=== PATIENT | male | born 1985 | race Caucasian/White ===

== ENCOUNTER 2021-10-08 20:54 | Emergency (ER) | payer SELFPAY ==
--- NOTE | 2021-10-08 21:06 | W.ED.GENADLT ---
HPI - General Adult General: Chief complaint: Nausea/Vomiting/Diarrhea Stated complaint: ABD PAIN Time Seen by Provider: 10/08/21 21:06 History of Present Illness: Patient is a 36-year-old male without any significant past medical history presenting to the emergency room with complaints of right-sided flank back and lower abdominal pain. Patient first noticed pain 2 days ago while he was walking. Since then patient has noticed the pain has significantly worsened. Patient reports nausea/vomiting, and yellowish stool. Patient denies any diarrhea, melena hematochezia. He no complaints new penile discharge or trauma or injury. Patient denies any prior abdominal surgeries. Patient has no renal colic. Denies any cough, runny nose sore throat, chest pain, shortness of breath, palpitation, or lightheadedness. Onset:2 days ago Duration:2 days Location:home Severity:moderate Associated symptoms: Reports nausea and vomiting; Deny chest pain, dyspnea, rash or palpitations Review of Systems Const: Denies: fever(s) or chills Eyes: Denies: change in vision ENMT: Denies: mouth pain Card: Denies: chest pain or palpitations Resp: Denies: dyspnea or non-productive cough GI: Reports: abdominal pain (+R flank/RLQ abd pain), nausea and vomiting; Denies: diarrhea : Denies: dysuria Musc: Denies: extremity pain Skin/Breast: Denies: rash or new lesions Neuro: Denies: weakness in extremities Psych: Reports: other (Normal mood) Herminio/Lymph: Denies: easy bruising FOR[facility]LY [facility], [facility] ED PFSH: Medical History No pertinent past medical history Social History Smoking and tobacco status: never smoked Alcohol intake: never Physical Exam Const: COMMON NORMALS: alert HENMT: COMMON NORMALS: atraumatic HEAD & SCALP: atraumatic MOUTH: moist mucous membranes not abnormal Eye: COMMON NORMALS: EOMs intact bilaterally and conjunctivae normal CONJUNCTIVA: Yes conjunctivae normal Neck/C-Spine: COMMON NORMALS: full ROM and supple Resp: COMMON NORMALS: normal respiratory effort and clear to auscultation bilaterally AUSCULTATION: clear to auscultation bilaterally Cardio: COMMON NORMALS: regular rate RATE: regular rate GI: COMMON NORMALS: Soft to palpation PALPATION: Yes Soft to palpation OTHER: + Moderate right flank, right CVA and right lower quadrant tenderness palpation. NO guarding rebound, guarding, rigidity. No CVA tenderness to percussion. Neg Barreto/Neg McBurney's point tenderness, no suprabupic tenderness to palpation. Extremity: COMMON NORMALS: full ROM Neuro: SENSORIUM/ORIENTATION: Yes alert MOTOR EXAM: No Abnormal motor strength present and Other motor observations present (no focal motor deficits) Psych: COMMON NORMALS: speech normal SPEECH: Yes normal speech MOOD & AFFECT: Yes euthymic mood Course Vital Signs: Vital signs: Vital Signs Temperature 98.0 F 10/08/21 21:11 Pulse Rate 65 10/08/21 23:53 Respiratory Rate 18 10/08/21 23:53 Blood Pressure 117/81 10/08/21 23:53 Pulse Oximetry 99 10/08/21 23:53 Oxygen Delivery Me thod 10/08/21 21:17 MDM - General Adult Medical Decision Making 36-year-old male presenting to the emergency room complaints of right-sided abdominal pain for last 2 days with associated nausea and vomiting. Exam, patient has moderate tenderness palpation in the right flank and right lower quadrant and right CVA area. No guarding or rebound tenderness. Patient hemodynamically stable. No acute distress Patient had a white count 12.3. Rest of lab within normal limit. UA negative for UTI. CT abdomen pelvis did not show any focal findings. No suspicion for other acute intra-abdominal pathology including SBO, biliary pathology, appendicitis, diverticulitis, or other emergent condition requiring surgery. Patient has been able to tolerate p.o. and reports pain is improved today observed in the emergency room. Rx tylenol PRN abd pain, maalox/pepcid PRN dyspepsia, and zofran PRN nausea/vomiting Disposition: Discharge. Patient counseled regarding diagnostic impression, treatment plan. Patient given ED strict return precautions to return for continuation, worsening, or development of new symptoms. Instructed to f/u w/ PCP regarding symptoms today. Patient verbalized understanding. Lab Data : 10/08/21 21:08 10/08/21 21:08 Radiology Impressions Abdomen/Pelvis CT 10/08/21 21:06 IMPRESSION: 1. No acute finding identified. Laboratory Results WBC 12.3 10^3/uL (4.0-10.0) H 10/08/21 21:08 RBC 5.48 10^6/uL (4.1-5.3) H 10/08/21 21:08 Hgb 14.3 g/dL (11.7-16.6) 10/08/21 21:08 Hct 43.0 % (42.0-52.0) 10/08/21 21:08 MCV 78.5 fl (80-94) L 10/08/21 21:08 MCH 26.1 pg (28.0-34.0) L 10/08/21 21:08 MCHC 33.3 g/dL (30.0-36.0) 10/08/21 21:08 RDW 14.7 % (12.1-15.1) 10/08/21 21:08 Plt Count 313 10^3/cmm (130-400) 10/08/21 21:08 MPV 10.5 fL (7.4-10.4) H 10/08/21 21:08 Neut % (Auto) 69.2 % 10/08/21 21:08 Lymph % (Auto) 24.3 % 10/08/21 21:08 Real % (Auto) 5.6 % 10/08/21 21:08 Eos % (Auto) 0.3 % 10/08/21 21:08 Baso % (Auto) 0.3 % 10/08/21 21:08 Neut # (Auto) 8.50 10^3/uL (1.8-7.7) H 10/08/21 21:08 Lymph # (Auto) 3.0 10^3/uL (0.8-4.8) 10/08/21 21:08 Real # (Auto) 0.7 10^3/uL (0.2-0.9) 10/08/21 21:08 Eos # (Auto) 0.0 10^3/uL (0.0-0.8) 10/08/21 21:08 Baso # (Auto) 0.0 10^3/uL (0.0-0.1) 10/08/21 21:08 Nucleated RBC % (auto) 0 % 10/08/21 21:08 Nucleated RBCs # 0.0 /100WBC 10/08/21 21:08 Sodium 140 mmol/L (136-145) 10/08/21 21:08 Potassium 3.9 mmol/L (3.5-5.1) 10/08/21 21:08 Chloride 102 mmol/L (98-107) 10/08/21 21:08 Carbon Dioxide 27 mmol/L (22-29) 10/08/21 21:08 Anion Gap 14.9 (5-19) 10/08/21 21:08 BUN 12 mg/dL (6-20) 10/08/21 21:08 Creatinine 0.8 mg/dL (0.7-1.2) 10/08/21 21:08 GFR Calculation 109.4 mL/min (90-130) 10/08/21 21:08 Glucose 96 mg/dL (65-115) 10/08/21 21:08 Calculated Osmolality 290 mOsm/kg (285-295) 10/08/21 21:08 Calcium 9.3 mg/dL (8.5-10.5) 10/08/21 21:08 Total Bilirubin 1.6 mg/dL (0.15-1.2) H 10/08/21 21:08 AST 18 U/L (0-40) 10/08/21 21:08 ALT 24 U/L (0-41) 10/08/21 21:08 Alkaline Phosphatase 89 IU/L (40-130) 10/08/21 21:08 Total Protein 7.5 g/dL (6.6-8.7) 10/08/21 21:08 Albumin 4.5 g/dL (3.5-5.2) 10/08/21 21:08 Globulin 3.0 g/dL (1.3-4.6) 10/08/21 21:08 Lipase 15 U/L (13-60) 10/08/21 21:08 Urine Color Yellow (Yellow) 10/08/21 22:24 Urine Appearance Clear (CLEAR) 10/08/21 22:24 Urine pH 6 (5-7) 10/08/21 22:24 Ur Specific [place] 1.015 (1.005-1.030) 10/08/21 22:24 Urine Protein Neg (Negative) 10/08/21 22:24 Urine Glucose (UA) Norm (Normal) 10/08/21 22:24 Urine Ketones 2+ (Negative) H 10/08/21 22:24 Urine Blood Neg (Negative) 10/08/21 22:24 Urine Nitrate Negative (Negative) 10/08/21 22:24 Urine Bilirubin 1+ (Negative) H 10/08/21 22:24 Urine Urobilinogen Norm mg/dL (Negative) 10/08/21 22:24 Ur Leukocyte Esterase Trace (Negative) H 10/08/21 22:24 Urine RBC 0-4 /hpf (0-2) H 10/08/21 22:24 Urine WBC 0-4 /hpf (0-5) H 10/08/21 22:24 Ur Squamous Epith Cells 0-4 /hpf (0-5) H 10/08/21 22:24 Amorphous Sediment Not Reportable 10/08/21 22:24 Urine Bacteria Trace /hpf (NONE) 10/08/21 22:24 Urine Mucus 4+ /hpf 10/08/21 22:24 Imaging Data Other Imaging: Radiologist's impression: [place] [address] [place] Scan Report Signed Patient: Zurdo Jain Unit #: [id number] : 1985 Age/Sex: 36 / M ADM Date: 10/08/21 Loc: ER Room/Bed: Attending Dr: Ordering Provider/Ordering MD: Nader Campos MD Date of Service: 10/08/21 Procedure(s): CT abdomen pelvis w con* [id number] Accession Number(s): [id number] Report Number: [id number] PROCEDURE INFORMATION: Exam: CT Abdomen And Pelvis With Contrast Exam date and time: 10/08/2021 9:22 PM Age: 36 years old Clinical indication: Abdominal pain; Acute; Prior surgery; Surgery date: 6+ months; Surgery type: Appx; Additional info: Abd pain TECHNIQUE: Imaging protocol: Computed tomography of the abdomen and pelvis with contrast. Radiation optimization: All CT scans at this facility use at least one of these dose optimization techniques: automated exposure control; mA and/or kV adjustment per patient size (includes targeted exams where dose is matched to clinical indication); or iterative reconstruction. Contrast material: OMNIPAQUE 350; Contrast volume: 95 ml; Contrast route: INTRAVENOUS (IV);? COMPARISON: No relevant prior studies available. RADIATION DOSE METRICS: Total DLP (mGy-cm): 462.83 FINDINGS: Liver: Normal. No mass. Gallbladder and bile ducts: Cholecystectomy. The bile ducts are normal. Pancreas: Normal. No ductal dilation. Spleen: Normal. No splenomegaly. Adrenal glands: Normal. No mass. Kidneys and ureters: Normal. No hydronephrosis. Stomach and bowel: Unremarkable. No obstruction. No mucosal thickening. Appendix: The appendix is not visualized. No secondary signs of appendicitis. Intraperitoneal space: Unremarkable. No free air. No significant fluid collection. Vasculature: Unremarkable. No abdominal aortic aneurysm. Lymph nodes: Unremarkable. No enlarged lymph nodes. Urinary bladder: Unremarkable as visualized. Reproductive: Unremarkable as visualized. Bones/joints: Unremarkable. No acute fracture. Soft tissues: Unremarkable. CT/CT abdomen pelvis w con* [id number] IMPRESSION: 1. No acute finding identified.? ? Dictated By: Mihir Becerra Signed By: Mihir Becerra Signed Date/Time: 10/08/212202 DD/ 21 Discharge Plan Discharge Patient Disposition: Home Clinical Impression: Abdominal pain Condition: Stable Prescriptions: New Pepcid 20 mg tablet 20 mg PO BID PRN (Reason: abdominal pain) 10 Days Qty: 20 0RF orphenadrine citrate 100 mg tablet extended release 100 mg PO BID PRN (Reason: pain) 10 Days Qty: 20 0RF Maalox Advanced 1,000-60 mg tablet,chewable 1 tab PO TID PRN (Reason: abdominal pain) 7 Days Qty: 21 0RF Discharge Orders: Discharge ED (Routine); Ordered 10/08/21 Ordered By: Nader Campos Discharge Diet: Advance as tolerated Discharge Activity: Increase activity as tolerated Patient Instructions: Abdominal Pain (ED) Activity Restrictions/Additional Instructions: Please come back if you have any worsening abdominal pain, fever or chills, nausea or vomiting, diarrhea, blood in the stool, inability hold down liquid or solids, or any new concerning complaints. Coding Level of Care Code ED Knocker Out for Ronnie Fwd Exam Comprehensive
[2021-10-08 21:11] VITALS: BP 116/77; PULSE 76; RESP 18; TEMP 36.7; O2SAT 100; BMI 24.3
[2021-10-08 21:14] LABS: Basophils % 0.3 %; Eosinophils % 0.3 %; Hemoglobin 14.3 g/dL (11.7-16.6); Lymphocytes % 24.3 %; Mean Corpuscular HGB Conc 33.3 g/dL (30.0-36.0); Mean Corpuscular Hemoglobin 26.1 pg (28.0-34.0); Mean Corpuscular Volume 78.5 fl (80-94); Mean Platelet Volume 10.5 fL (7.4-10.4); Monocytes # 0.7 10^3/uL (0.2-0.9); Monocytes % 5.6 %; Neutrophils % 69.2 %; Nucleated Red Blood Cells % 0 %; Platelet Count 313 10^3/cmm (130-400); Red Blood Count 5.48 10^6/uL (4.1-5.3); Red Cell Distribution Width 14.7 % (12.1-15.1); White Blood Count 12.3 10^3/uL (4.0-10.0)
[2021-10-08 21:16] VITALS: RESP 20; O2SAT 100
[2021-10-08] MEDS: morphine 4 mg/mL SDV 1 mL 2 MG IVP (21:16)
[2021-10-08 21:17] VITALS: BP 114/74; PULSE 35; RESP 19; O2SAT 100
[2021-10-08] MEDS: sodium chloride 0.9% 1,000 ML 999 ML IV (21:17)
[2021-10-08] MEDS: iohexol 350 mg/mL 100 mL Btl IV (21:24)
[2021-10-08 21:56] LABS: Alanine Aminotransferase 24 U/L (0-41); Albumin Level 4.5 g/dL (3.5-5.2); Alkaline Phosphatase 89 IU/L (40-130); Anion Gap 14.9 (5-19); Aspartate Amino Transferase 18 U/L (0-40); Blood Urea Nitrogen 12 mg/dL (6-20); Calcium 9.3 mg/dL (8.5-10.5); Carbon Dioxide 27 mmol/L (22-29); Chloride 102 mmol/L (98-107); Glomerular Filtration Rate 109.4 mL/min (90-130); Glucose 96 mg/dL (65-115); Lipase 15 U/L (13-60); Osmolality Calculated 290 mOsm/kg (285-295); Potassium 3.9 mmol/L (3.5-5.1); Sodium 140 mmol/L (136-145); Total Bilirubin 1.6 mg/dL (0.15-1.2); Total Protein 7.5 g/dL (6.6-8.7)
[2021-10-08] MEDS: lidocaine 2% viscous 15 ML, aluminum-mag hydrox-simethicon 30 ML, sucralfate oral liq 1 GM PO (22:30)
[2021-10-08 23:50] LABS: Add Urine Culture? No; Add Urine Microscopic? YES; Bacteria Urine TRACE /hpf; Bilirubin Urine 1+ (Negative); Blood Urine Neg (Negative); Glucose Urine UA Norm (Normal); Ketones Urine 2+ (Negative); Leukocyte Esterase Urine Trace (Negative); Mucus Urine 4+ /hpf; Nitrate Urine Negative (Negative); Protein Urine Neg (Negative); RBC Urine 0-4 /hpf (0-2); Specific Gravity, Urine 1.015 (1.005-1.030); Squamous Epithelial Cell Urine 0-4 /hpf (0-5); Urine Appearance Clear (CLEAR); Urine Color Yellow (Yellow); Urobilinogen Urine Norm (Negative); WBC Urine 0-4 /hpf (0-5); pH Urine 6 (5-7)
[2021-10-08 23:53] VITALS: BP 117/81; PULSE 65; RESP 18; O2SAT 99
== END 2021-10-08 23:55 | disposition home or self-care (01) ==
PROVIDERS: Emergency Provider Emergency Medicine
DX: R10.9 Unspecified abdominal pain (principal)
CPT/HCPCS: 74177; 80053; 81001; 83690; 85025; 96361; 96374; 99285; J2270; J7030; Q9967